=== PATIENT | female | born 1965 | race Two or more races ===

== ENCOUNTER 2018-01-12 00:20 | Emergency (ER) | payer SELFPAY ==
[~2018-01-12] VITALS: Ht 157.5 cm; Wt 72.6 kg
[2018-01-12 00:51] VITALS: BP 134/98
[2018-01-12] MEDS ORDERED: methylPREDNISolone SOD SUCC 125 MG/2 ML VL IM ONE (02:00)
[2018-01-12] MEDS ORDERED: ALBUTEROL SULF 2.5 MG/0.5ML(0.5%) NEB SOLN NEB ONE (02:00)
[2018-01-12] MEDS ORDERED: cefTRIAXone SOD 1,000 MG VL IM ONE (02:00)
[2018-01-12] MEDS ORDERED: IPRATROPIUM BROM 0.5 MG/2.5ML INH SOL NEB ONE (02:00)
== END 2018-01-12 02:42 | disposition home or self-care (01) ==
LOC: ER 00:33
DX: J45.909 Unspecified asthma, uncomplicated (principal)
CPT/HCPCS: 94640; 96372; 99284; J0696; J2930; J7611; J7644